=== PATIENT | female | born 1965 | race Caucasian/White ===

== ENCOUNTER 2016-07-12 11:03 | Emergency (ER) | payer OTHER ==
[~2016-07-12] VITALS: Ht 170.2 cm; Wt 84.2 kg
[2016-07-12 11:05] VITALS: TEMP 36.9; Ht 170.2 cm; Wt 84.2 kg
--- NOTE | 2016-07-12 11:50 | EMERGENCY ROOM VISIT NOTE ---
History Report prepared by Xochilt: Rajiv Goncalves Under the Supervision of: Dr. Jose Yañez M.D. First contact with patient: 11:38 Chief Complaint: SYNCOPE Stated Complaint: SYNCOPE History of Present Illness The patient is a 50 year old female who presents to the Emergency Room with complaints of a syncopal episode that occurred prior to arrival this morning. She states that she has been having a chest cold for the past few days, with symptoms including a cough and intermittent chills. The patient says that she felt weak this morning, and then got hot all of a sudden, and the next thing she remembers is being picked up off the ground. She notes no history of syncopal episodes. She denies any shortness of breath, fevers, nausea, vomiting , lightheadedness, dizziness, or bowel problems. Currently, the patient feels okay. She has been drinking fluids fine for the past few days. She smokes a pack per day, and has smoked ever since she was a teenager. She stopped having her period a few years ago. The patient has no history of respiratory problems except for a bout of bronchitis. She is not on any blood thinners. Source of History: patient Onset: Prior to arrival this morning Position: other (global - syncopal episode) Timing: other (episode) Associated Symptoms: + chills, + cough, + weakness, No SOB, No fevers, No nausea, No vomiting Note: Associated symptoms: Got hot all of a sudden before syncopal episode. Denies lightheadedness, dizziness, or bowel problems. Review of Systems All systems have been listed, reviewed, and are negative other than those previously mentioned. Please see Additional Medical History Sheet. Past Medical & Surgical Medical Problems: (1) Bronchitis (2) No chronic problems Family History No pertinent family history Social History Smoking Status: Current Every Day Smoker (pack per day) Marital Status: Housing Status: lives with family Occupation Status: employed Current/Historical Medications Scheduled Azithromycin (Zithromax Z-Jalen), 0 PO UD Allergies Coded Allergies: No Known Allergies (Verified , 07/12/16) Physical Exam Vital Signs Date Time Temp Pulse Resp B/P Pulse Ox O2 Delivery O2 Flow Rate FiO2 07/12/16 15:16 71 18 113/76 95 07/12/16 14:30 78 18 111/68 100 Room Air 07/12/16 13:25 72 106/71 80 117/73 83 109/79 07/12/16 13:03 77 24 116/72 95 Room Air 07/12/16 12:06 86 18 97/71 93 Room Air 07/12/16 11:54 95 Room Air 07/12/16 11:45 89 114/75 102 115/78 101 108/73 07/12/16 11:45 96 Room Air 07/12/16 11:45 96 Room Air 07/12/16 11:10 100 07/12/16 11:05 36.9 92 22 131/83 96 Room Air Physical Exam GENERAL: Patient awake, alert, oriented x 3. Patient follows commands. Patient does not appear toxic. Patient is adequately hydrated and well- nourished. SKIN: No erythema, pallor, cyanosis or rash HEENT: Normal head, pupils equal, reactive to light and accommodation. Ears normal. Oral cavity and posterior pharynx appear normal. Mucous membrane appears slightly dry. Neck: Without adenopathy, no neck vein distention. LUNGS: Patient has rhonchi in right base. HEART: No murmurs. No gallops. No rubs ABDOMEN: No masses, no rebound, no hepatomegaly or splenomegaly. EXTREMITIES: No signs of trauma. No pedal or pretibial edema. No calf or thigh tenderness. NEUROLOGIC: Cranial nerves II-XII within normal limits. No gross motor sensory function deficits. Medical Decision & Procedures ER Provider Diagnostic Interpretation: X ray results are stated below per my interpretation and the radiologist's interpretation. CHEST 2 VIEWS ROUTINE CLINICAL HISTORY: Pneumonia COMPARISON STUDY: No previous studies for comparison. FINDINGS: The heart is normal in size. There is a thoracolumbar scoliosis. There are right basilar airspace opacities, consistent with a pneumonitis. Films subsequent to treatment are recommended in follow-up. There are no pleural effusions.[ IMPRESSION: Right medial basilar airspace opacities, consistent with a pneumonitis. Films subsequent to treatment are recommended in follow-up. Electronically signed by: Maynor Piper M.D. 07/12/2016 1:07 PM Dictated Date/Time: 07/12/2016 1:06 PM Laboratory Results 07/12/16 11:30 Red Blood Count 4.84, Mean Corpuscular Volume 89.0, Mean Corpuscular Hemoglobin 30.6, Mean Corpuscular Hemoglobin Concent 34.3, Mean Platelet Volume 10.2, Neutrophils (%) (Auto) 72.0, Lymphocytes (%) (Auto) 18.0, Monocytes (%) (Auto) 8.4, Eosinophils (%) (Auto) 0.9, Basophils (%) (Auto) 0.4, Neutrophils # (Auto) 8.29, Lymphocytes # (Auto) 2.08, Monocytes # (Auto) 0.97, Eosinophils # (Auto) 0.10, Basophils # (Auto) 0.05 07/12/16 12:30 Test 07/12/16 11:26 07/12/16 11:30 07/12/16 11:33 07/12/16 11:39 Bedside Glucose 89 mg/dl (70-90) White Blood Count 11.53 K/uL (4.8-10.8) Red Blood Count 4.84 M/uL (4.2-5.4) Hemoglobin 14.8 g/dL (12.0-16.0) Hematocrit 43.1 % (37-47) Mean Corpuscular Volume 89.0 fL (80-100) Mean Corpuscular Hemoglobin 30.6 pg (25-34) Mean Corpuscular Hemoglobin Concent 34.3 g/dl (32-36) Platelet Count 289 K/uL (130-400) Mean Platelet Volume 10.2 fL (7.4-10.4) Neutrophils (%) (Auto) 72.0 % Lymphocytes (%) (Auto) 18.0 % Monocytes (%) (Auto) 8.4 % Eosinophils (%) (Auto) 0.9 % Basophils (%) (Auto) 0.4 % Neutrophils # (Auto) 8.29 K/uL (1.4-6.5) Lymphocytes # (Auto) 2.08 K/uL (1.2-3.4) Monocytes # (Auto) 0.97 K/uL (0.11-0.59) Eosinophils # (Auto) 0.10 K/uL (0-0.5) Basophils # (Auto) 0.05 K/uL (0-0.2) RDW Standard Deviation 43.4 fL (36.4-46.3) RDW Coefficient of Variation 13.2 % (11.5-14.5) Immature Granulocyte % (Auto) 0.3 % Immature Granulocyte # (Auto) 0.04 K/uL (0.00-0.02) Prothrombin Time 11.0 SECONDS (9.0-12.0) Prothromb Time International Ratio 1.0 (0.9-1.1) Activated Partial Thromboplast Time 29.0 SECONDS (21.0-31.0) Partial Thromboplastin Ratio 1.1 Urine Color DK YELLOW Urine Appearance CLOUDY (CLEAR) Urine pH 5.0 (4.5-7.5) Urine Specific [place] 1.027 (1.000-1.030) Urine Protein 2+ (NEG) Urine Glucose (UA) NEG (NEG) Urine Ketones TRACE (NEG) Urine Occult Blood 3+ (NEG) Urine Nitrite POS (NEG) Urine Bilirubin NEG (NEG) Urine Urobilinogen NEG (NEG) Urine Leukocyte Esterase SMALL (NEG) Urine WBC (Auto) 5-10 /hpf (0-5) Urine RBC (Auto) 10-30 /hpf (0-4) Urine Hyaline Casts (Auto) 5-10 /lpf (0-5) Urine Epithelial Cells (Auto) >30 /lpf (0-5) Urine Bacteria (Auto) 1+ (NEG) Urine Renal Epithelial Cells /lpf (0-5) Urine Pathogenic Casts 0-3 GRANULAR CASTS /lpf (0) Urine Mucus PRESENT (NONE PRSENT) Creatine Kinase MB Ratio (0-3.0) Bedside Troponin I 0.010 ng/ml (0-0.045) Test 07/12/16 12:30 Anion Gap 8.0 mmol/L (3-11) Est Creatinine Clear Calc Drug Dose 92.8 ml/min Estimated GFR () 98.9 Estimated GFR (Non- 85.4 BUN/Creatinine Ratio 15.2 (10-20) Lactic Acid Level 1.5 mmol/L (0.4-2.0) Calcium Level 9.0 mg/dl (8.5-10.1) Total Bilirubin 0.3 mg/dl (0.2-1) Aspartate Amino Transf (AST/SGOT) 35 U/L (15-37) Alanine Aminotransferase (ALT/SGPT) 56 U/L (12-78) Alkaline Phosphatase 78 U/L (45-117) Troponin I < 0.015 ng/ml (0-0.045) Total Protein 7.5 gm/dl (6.4-8.2) Albumin 3.4 gm/dl (3.4-5.0) Globulin 4.1 gm/dl (2.5-4.0) Albumin/Globulin Ratio 0.8 (0.9-2) Laboratory results as stated above per my review. Medications Administered Medications (Trade) Dose Ordered Sig/Ramon Route Start Time Stop Time Status Last Admin Dose Admin Sodium Chloride (Nss 1000ml) 1,000 ml @ 1,000 mls/hr Q1H ONCE IV 07/12/16 12:15 07/12/16 13:14 DC 07/12/16 12:28 1,000 MLS/HR Ceftriaxone Sodium 1 gm 1 gm NOW STAT IV 07/12/16 13:18 07/12/16 13:19 DC 07/12/16 13:32 1 GM Sodium Chloride (Nss 1000ml) 1,000 ml @ 1,000 mls/hr Q1H ONCE IV 07/12/16 13:30 07/12/16 14:29 DC 07/12/16 13:33 1,000 MLS/HR Albuterol (Ventolin Hfa Inhaler) 2 puffs NOW STAT INH 07/12/16 14:06 07/12/16 14:07 DC 07/12/16 14:38 2 PUFFS ECG Indication: syncope Rate (beats per minute): 94 Rhythm: normal sinus Findings: no acute ischemic change, no ectopy ED Course 1138: Past medical records reviewed. The patient was evaluated in room C10. A complete history and physical examination was performed. 1215: Ordered Sodium Chloride 1000 ml @ 1000 mls/hr IV. 1318: Ordered Rocephin Inj 1 gm IV. 1347: I reevaluated the patient and she is feeling a bit better. The patient verbally expressed understanding and agreement of the treatment plan. The patient will be discharged. Medical Decision Nurses notes reviewed. Medical history sheet reviewed. Differential diagnosis includes but is not limited to: acute bronchitis, pneumonia, arrhythmia, vasovagal syncope, cough syncope. Multiple labs, urinalysis and imaging were obtained. Please see above. The patient has a right lower lobe pneumonia. I believe her syncope is most likely cough syncope. The patient remained stable while here in the ED. She was given IV Rocephin and fluids. She was also started on an inhaler. She will continue those medications at home. The patient was encouraged to follow-up with her family physician this coming week. Impression Primary Impression: Cough syncope Additional Impression: Pneumonia Scribe Attestation The scribe's documentation has been prepared under my direction and personally reviewed by me in its entirety. I confirm that the note above accurately reflects all work, treatment, procedures, and medical decision making performed by me. Departure Information Dispostion Home / Self-Care Prescriptions Azithromycin (ZITHROMAX Z-JALEN) 250 Mg Tab 0 PO UD, #1 PKT Prov: Jose Yañez M.D. 07/12/16 Referrals No Doctor, Assigned (PCP) Forms HOME CARE DOCUMENTATION FORM, IMPORTANT VISIT INFORMATION Patient Instructions Azithromycin Oral tablet, My [facility] Additional Instructions 500 mg of azithromycin today then 250 mg daily for 4 days. 2 puffs of Ventolin inhaler every 4 hours as needed for cough or wheezing. Drink extra fluids. Follow-up with your family physician this coming week. Problem Qualifiers
[2016-07-12 11:51] LABS: BASO % 0.4 %; BASO ABS # 0.05 K/uL (0-0.2); COMPLETE YES; EOS % 0.9 %; HEMATOCRIT 43.1 % (37-47); IG% 0.3 %; LYMPH ABS # 2.08 K/uL (1.2-3.4); MEAN CORPUSCULAR HEMOGLOBIN 30.6 pg (25-34); MEAN CORPUSCULAR HGB CONC 34.3 g/dl (32-36); MEAN PLATELET VOLUME 10.2 fL (7.4-10.4); MONO % 8.4 %; PLATELET COUNT 289 K/uL (130-400); RED BLOOD COUNT 4.84 M/uL (4.2-5.4); WHITE BLOOD COUNT 11.53 K/uL (4.8-10.8)
[2016-07-12 11:54] VITALS: O2SAT 95
[2016-07-12 11:57] LABS: PARTIAL THROMBOPLASTIN RATIO 1.1
[2016-07-12 11:59] LABS: URINE APPEARANCE CLOUDY (CLEAR); URINE COLOR DK YELLOW; URINE EPITHELIAL CELL AUTO >30 /lpf (0-5); URINE NITRITE POS (NEG); URINE SPECIFIC GRAVITY 1.027 (1.000-1.030); UROBILINOGEN NEG (NEG); ZZUR CULT IF INDIC CLEAN CATCH NO
[2016-07-12] MEDS ORDERED: SODIUM CHLORIDE 0.9% 1000ML 1,000 ML IV ONE ×2 (12:15→13:30)
[2016-07-12 12:26] LABS: MANUAL MICROSCOPIC REQUIRED? NO; REVIEW REQ? YES
[2016-07-12 12:28] LABS: URINE BILIRUBIN NEG (NEG)
[2016-07-12 12:42] LABS: URINE MUCUS PRESENT (NONE PRSENT)
[2016-07-12 12:44] LABS: URINE PATH CASTS 0-3 GRANULAR CASTS /lpf (0)
--- NOTE | 2016-07-12 13:09 | DIAGNOSTIC IMAGING REPORT ---
CHEST 2 VIEWS ROUTINE CLINICAL HISTORY: Pneumonia COMPARISON STUDY: No previous studies for comparison. FINDINGS: The heart is normal in size. There is a thoracolumbar scoliosis. There are right basilar airspace opacities, consistent with a pneumonitis. Films subsequent to treatment are recommended in follow-up. There are no pleural effusions.[ IMPRESSION: Right medial basilar airspace opacities, consistent with a pneumonitis. Films subsequent to treatment are recommended in follow-up. Electronically signed by: Maynor Piper M.D. 07/12/2016 1:07 PM Dictated Date/Time: 07/12/2016 1:06 PM
[2016-07-12 13:10] LABS: ALT/SGPT 56 U/L (12-78); BLOOD UREA NITROGEN 12 mg/dl (7-18); BUN/CREATININE RATIO 15.2 (10-20); CARBON DIOXIDE 27 mmol/L (21-32); CHLORIDE 104 mmol/L (98-107); GLUCOSE 73 mg/dl (70-99); POTASSIUM 3.8 mmol/L (3.5-5.1); SODIUM 139 mmol/L (136-145)
[2016-07-12 13:14] LABS: ALB/GLOB RATIO 0.8 (0.9-2); ALKALINE PHOSPHATASE 78 U/L (45-117); AST/SGOT 35 U/L (15-37)
[2016-07-12] MEDS ORDERED: CEFTRIAXONE SOD INJ 1 GM ADDVIAL IV STA (13:18)
[2016-07-12] MEDS ORDERED: AZITTAB PO (14:04)
[2016-07-12] MEDS ORDERED: ALBUTEROL HFA 8 GM INHALER INH STA (14:06)
[2016-07-12 15:16] VITALS: BP 113/76; PULSE 71; O2SAT 95
== END 2016-07-12 15:18 | disposition home or self-care (01) ==
LOC: EDBD 11:03 → C.EDC 11:04
DX: R05 Cough (principal); R55 Syncope and collapse; J18.1 Lobar pneumonia, unspecified organism; F17.200 Nicotine dependence, unspecified, uncomplicated

== ENCOUNTER → 2016-07-28 | Outpatient (CLI) | payer OTHER ==
[2016-07-28 18:44] LABS: CHOLESTEROL/HDL RATIO 3.1; THYROID STIMULATING HORMONE 1.64 uIu/ml (0.300-4.500)
== END | disposition home or self-care (01) ==
LOC: C.LABPVFM 11:21
PROVIDERS: ATTEND Neuromusculoskeletal Medicine & OMM
DX: Z00.00 Encounter for general adult medical examination without abnormal findings (principal)